=== PATIENT | male | born 1965 | race African-American/Black ===

== ENCOUNTER 2023-04-25 17:16 | Inpatient (IN) | payer OTHER ==
[2023-04-25 18:03] LABS: Hemoglobin 10.4 g/dL (13.5-17.5); Mean Corpuscular HGB CONC 33.7 g/dL (32.0-36.0); Mean Corpuscular Hemoglobin 29.9 pg (27.0-33.0); Mean Corpuscular Volume 88.8 fl (81.2-95.1); Mean Platelet Volume 11.4 fl (7.4-10.4); Platelet Count 301 10x3/uL (150-450); RBC Distribution Width 12.4 % (11.5-14.5); Red Blood Cell (RBC) Count 3.48 10x6/uL (4.32-5.72); White Blood Cell (WBC) Count 21.4 10x3/uL (3.5-10.5)
[2023-04-25 18:11] LABS: ALT (SGPT) 32 U/L (8-55); AST (SGOT) 29 U/L (5-34); Albumin 3.2 g/dL (3.5-5.0); Alkaline Phosphatase 96 U/L (40-110); Anion Gap 16 mmol/L (10-20); BUN (Urea Nitrogen) 9 mg/dL (8.4-25.7); Bilirubin, Total 1.3 mg/dL (0.2-1.2); Calc. Creatinine Clearance 0 mL/min (70-130); Calcium 8.6 mg/dL (7.8-10.44); Carbon Dioxide 26 mmol/L (22-29); Chloride 96 mmol/L (98-107); Estimated GFR 103; Glucose 96 mg/dL (70-105); Protein, Total 7.2 g/dL (6.0-8.3); Sodium 135 mmol/L (136-145)
[2023-04-25 18:17] LABS: Potassium 2.5 mmol/L (3.5-5.1)
[2023-04-25 18:29] LABS: MDiff Complete? YES
[2023-04-25] MEDS ORDERED: Ketorolac Tromethamine 30 MG/ML VIAL ONE (18:30)
[2023-04-25] MEDS ORDERED: Ondansetron PF 4 MG/2 ML Vial ONE (18:30)
[2023-04-25 18:31] LABS: Lymphocytes 8 % (21-51); Monocytes 11 % (0-10); Neutrophil 81 % (42-75)
[2023-04-25] MEDS ORDERED: cefTRIAXone (ROCEPHIN) 1 GM VIAL ONE (18:31)
[2023-04-25 18:32] LABS: Large Platelets SLIGHT (None Seen); Platelet Adequacy Comment Appears Adequate; RBC Morph Comment Within Normal Limits
[2023-04-25 19:48] LABS: Bilirubin 1+ (Negative); Blood, Urine 50 (Negative); Clarity Clear (Clear); Glucose, Urine (Dipstick) Normal (Negative); Ketone, Urine 50 mg/dL (Negative); Leukocyte 25 (Negative); Nitrite Negative (Negative); Protein, Urine (Dipstick) 100 mg/dl (Neg-Trace); Specific Gravity, Urine 1.005 (1.005-1.030); Urobilinogen 12 mg/dL (Less than 2); pH, Urine 6.5 (5.0-9.0)
[2023-04-25 20:01] LABS: Bacteria/HPF Rare-Few HPF (None Seen); CAUTI Indications for Culture Dysuria,urgency,freq; RBC/HPF 0-3 HPF (0-3); Squamous Epithelial 0-3 HPF (0-3); WBC/HPF 0-3 HPF (0-3)
[2023-04-25 20:02] LABS: Urine Culture Reflex No No
[2023-04-25 20:24] LABS: SARS-CoV-2 NAA Rapid Test Not Detected (NotDetected)
[2023-04-25] MEDS ORDERED: Ondansetron PF 4 MG/2 ML Vial IVP PRN (22:34)
[2023-04-25] MEDS ORDERED: Guaifenesin DM 100-10/5 ML UDCUP PO PRN (22:34)
[2023-04-25] MEDS ORDERED: Senokot S 8.6-50 MG TAB PO PRN (22:34)
[2023-04-25] MEDS ORDERED: Calcium Carbonate 500 MG ChewTAB PO PRN (22:34)
[2023-04-26 00:53] VITALS: BMI 39.6
[2023-04-26] MEDS ORDERED: cefTRIAXone\\ROCEPHIN 1 GM in Sodium Chloride 0.9% 100 ML IVPB SCH (01:00)
[2023-04-26] MEDS: Potassium Chloride 20 MEQ TAB PO SCH ×2 (01:28→05:39)
[2023-04-26] MEDS: Acetaminophen 325 MG TAB PO PRN ×2 (03:27→13:00)
[2023-04-26 04:27] LABS: Hemoglobin 10.5 g/dL (13.5-17.5); Mean Corpuscular HGB CONC 32.9 g/dL (32.0-36.0); Mean Corpuscular Hemoglobin 29.3 pg (27.0-33.0); Mean Corpuscular Volume 89.1 fl (81.2-95.1); Mean Platelet Volume 11.2 fl (7.4-10.4); Platelet Count 321 10x3/uL (150-450); RBC Distribution Width 12.4 % (11.5-14.5); Red Blood Cell (RBC) Count 3.58 10x6/uL (4.32-5.72); White Blood Cell (WBC) Count 22.8 10x3/uL (3.5-10.5)
[2023-04-26 04:29] LABS: MDiff Complete? YES
[2023-04-26 04:41] LABS: Anion Gap 15 mmol/L (10-20); BUN (Urea Nitrogen) 10 mg/dL (8.4-25.7); CK (CPK) 102 U/L (30-200); Calc. Creatinine Clearance 169 mL/min (70-130); Calcium 8.5 mg/dL (7.8-10.44); Carbon Dioxide 27 mmol/L (22-29); Chloride 99 mmol/L (98-107); Estimated GFR 103; Glucose 112 mg/dL (70-105); Magnesium 1.9 mg/dL (1.6-2.6); Potassium 2.8 mmol/L (3.5-5.1); Sodium 138 mmol/L (136-145)
[2023-04-26 04:42] LABS: ALT (SGPT) 35 U/L (8-55); AST (SGOT) 32 U/L (5-34); Albumin 3.1 g/dL (3.5-5.0); Alkaline Phosphatase 103 U/L (40-110); Bilirubin, Direct 0.8 mg/dL (0.1-0.3); Bilirubin, Total 1.1 mg/dL (0.2-1.2); Protein, Total 7.1 g/dL (6.0-8.3)
[2023-04-26 05:14] LABS: Band 11 % (5-11); Lymphocytes 3 % (21-51); Monocytes 5 % (0-10); Neutrophil 81 % (42-75)
[2023-04-26 05:15] LABS: Large Platelets SLIGHT (None Seen); Platelet Adequacy Comment Appears Adequate; RBC Morph Comment Within Normal Limits
[2023-04-26] MEDS ORDERED: Furosemide 20 MG TAB PO SCH (09:00)
[2023-04-26] MEDS: Amlodipine 5 MG TAB PO SCH (10:19)
[2023-04-26] MEDS ORDERED: Sodium Chloride 0.9% 1,000 ML IV SCH (10:45)
[2023-04-26] MEDS: Potassium Chloride 20 MEQ in Premix Bag 1 BAG IVPB SCH ×2 (13:00→19:19)
[2023-04-26 13:11] LABS: HBCM Index 0.07 S/CO (0-0.79); HBSAg Index 0.31 S/CO (0-0.99); Hep A IgM AB Non-Reactive S/CO (NonReactive); Hep A IgM S/CO 0.11 S/CO (0-0.79); Hep B Surf Ag Non-Reactive S/CO (NonReactive); Hepatitis B Core IgM Abs Non-Reactive S/CO (NonReactive)
[2023-04-26 13:15] LABS: Hep C IgG Ab Reflex HepC Qnt S/CO (NonReactive); Hep C Index 1.73 S/CO (0-0.79)
[2023-04-26] MEDS ORDERED: Piperacillin/Tazobactam 3.375 GM in Sodium Chloride 0.9% 100 ML IVPB SCH ×2 (17:00→18:00)
[2023-04-26] MEDS ORDERED: cefTRIAXone\\ROCEPHIN 2 GM in Sodium Chloride 0.9% 100 ML IVPB SCH (18:00)
[2023-04-26] MEDS: Piperacillin/Tazobactam 3.375 GM in Sodium Chloride 0.9% 100 ML IVPB SCH (20:59)
[2023-04-26] MEDS ORDERED: Simvastatin 10 MG TAB PO SCH (21:00)
[2023-04-27] MEDS: Piperacillin/Tazobactam 3.375 GM in Sodium Chloride 0.9% 100 ML IVPB SCH ×2 (05:14→14:02)
[2023-04-27 05:24] LABS: Hemoglobin 10.8 g/dL (13.5-17.5); MDiff Complete? YES; Mean Corpuscular HGB CONC 32.9 g/dL (32.0-36.0); Mean Corpuscular Hemoglobin 29.4 pg (27.0-33.0); Mean Corpuscular Volume 89.4 fl (81.2-95.1); Mean Platelet Volume 11.3 fl (7.4-10.4); Platelet Count 348 10x3/uL (150-450); RBC Distribution Width 12.5 % (11.5-14.5); Red Blood Cell (RBC) Count 3.67 10x6/uL (4.32-5.72); White Blood Cell (WBC) Count 27.7 10x3/uL (3.5-10.5)
[2023-04-27 05:36] LABS: Anion Gap 14 mmol/L (10-20); BUN (Urea Nitrogen) 7 mg/dL (8.4-25.7); Calc. Creatinine Clearance 180 mL/min (70-130); Calcium 8.7 mg/dL (7.8-10.44); Carbon Dioxide 26 mmol/L (22-29); Chloride 99 mmol/L (98-107); Estimated GFR 105; Glucose 107 mg/dL (70-105); Magnesium 1.8 mg/dL (1.6-2.6); Potassium 3.2 mmol/L (3.5-5.1); Sodium 136 mmol/L (136-145)
[2023-04-27 06:03] LABS: Band 6 % (5-11); Lymphocytes 5 % (21-51); Monocytes 5 % (0-10); Neutrophil 83 % (42-75)
[2023-04-27 06:04] LABS: Platelet Adequacy Comment Appears Adequate; RBC Morph Comment Within Normal Limits
[2023-04-27] MEDS: Amlodipine 5 MG TAB PO SCH (08:39)
[2023-04-27] MEDS: Potassium Chloride 20 MEQ TAB PO SCH ×2 (08:39→14:01)
[2023-04-27] MEDS ORDERED: Meropenem 1 GM in Sodium Chloride 0.9% 100 ML IVPB SCH ×2 (17:30→18:00)
[2023-04-27] MEDS: Acetaminophen 325 MG TAB PO PRN (19:53)
[2023-04-27] MEDS: Enoxaparin 120 MG/0.8 ML SYRINGE SC SCH (20:04)
[2023-04-28] MEDS: Meropenem 1 GM in Sodium Chloride 0.9% 100 ML IVPB SCH ×3 (01:29→16:27)
[2023-04-28 04:12] LABS: Mean Corpuscular HGB CONC 32.4 g/dL (32.0-36.0); Mean Corpuscular Hemoglobin 29.4 pg (27.0-33.0); Mean Corpuscular Volume 90.6 fl (81.2-95.1); Platelet Count 362 10x3/uL (150-450); RBC Distribution Width 12.7 % (11.5-14.5); Red Blood Cell (RBC) Count 3.74 10x6/uL (4.32-5.72); White Blood Cell (WBC) Count 21.3 10x3/uL (3.5-10.5)
[2023-04-28 04:16] LABS: MDiff Complete? YES
[2023-04-28 04:22] LABS: Anion Gap 15 mmol/L (10-20); BUN (Urea Nitrogen) 8 mg/dL (8.4-25.7); Calc. Creatinine Clearance 195 mL/min (70-130); Calcium 8.7 mg/dL (7.8-10.44); Carbon Dioxide 27 mmol/L (22-29); Chloride 99 mmol/L (98-107); Estimated GFR 107; Glucose 98 mg/dL (70-105); Potassium 3.8 mmol/L (3.5-5.1); Sodium 137 mmol/L (136-145)
[2023-04-28 05:15] LABS: Band 13 % (5-11); Lymphocytes 6 % (21-51); Monocytes 5 % (0-10); Neutrophil 76 % (42-75)
[2023-04-28 05:16] LABS: Platelet Adequacy Comment Appears Adequate; RBC Morph Comment Within Normal Limits
[2023-04-28] MEDS: Enoxaparin 120 MG/0.8 ML SYRINGE SC SCH ×2 (08:49→20:05)
[2023-04-28] MEDS: Atorvastatin Calcium 10 MG TAB PO SCH (08:50)
[2023-04-28] MEDS: HYDROcodone/Acetaminophen 5/325 mg Tablet PO PRN (08:50)
[2023-04-28] MEDS: Amlodipine 10 MG TAB PO SCH (08:50)
[2023-04-28] MEDS ORDERED: VANCOMYCIN 2 GRAM/400 ML BAG 2 GM in Premix Bag 1 BAG IVPB SCH (14:00)
[2023-04-28 17:37] LABS: Hep C PCR-Quant HCV Not Detected IU/mL (.)
[2023-04-28] MEDS: Acetaminophen 325 MG TAB PO PRN (20:02)
[2023-04-28] MEDS ORDERED: Vancomycin HCl 1.25 GM in Sodium Chloride 0.9% 250 ML 250 ML IVPB SCH (21:00)
[2023-04-29] MEDS: Meropenem 1 GM in Sodium Chloride 0.9% 100 ML IVPB SCH ×3 (01:43→16:28)
[2023-04-29] MEDS: VANCOMYCIN 1.75 GM/350 ML BAG 1.75 GM in Premix Bag 1 BAG IVPB SCH ×2 (01:44→13:55)
[2023-04-29 05:16] LABS: MDiff Complete? YES; Mean Corpuscular HGB CONC 32.8 g/dL (32.0-36.0); Mean Corpuscular Hemoglobin 29.8 pg (27.0-33.0); Mean Corpuscular Volume 90.8 fl (81.2-95.1); Mean Platelet Volume 11.1 fl (7.4-10.4); Platelet Count 375 10x3/uL (150-450); RBC Distribution Width 12.8 % (11.5-14.5); Red Blood Cell (RBC) Count 3.69 10x6/uL (4.32-5.72); White Blood Cell (WBC) Count 21.3 10x3/uL (3.5-10.5)
[2023-04-29 05:28] LABS: Anion Gap 13 mmol/L (10-20); BUN (Urea Nitrogen) 8 mg/dL (8.4-25.7); Calc. Creatinine Clearance 197 mL/min (70-130); Calcium 8.6 mg/dL (7.8-10.44); Carbon Dioxide 27 mmol/L (22-29); Chloride 99 mmol/L (98-107); Estimated GFR 107; Glucose 96 mg/dL (70-105); Potassium 3.5 mmol/L (3.5-5.1); Sodium 135 mmol/L (136-145)
[2023-04-29 05:45] LABS: Lymphocytes 3 % (21-51); Monocytes 7 % (0-10); Neutrophil 90 % (42-75); Platelet Adequacy Comment Appears Adequate
[2023-04-29] MEDS: HYDROcodone/Acetaminophen 5/325 mg Tablet PO PRN ×2 (07:45→13:55)
[2023-04-29] MEDS: Sodium Chloride 0.9% 1,000 ML IV SCH ×2 (07:45→19:00)
[2023-04-29] MEDS: Enoxaparin 120 MG/0.8 ML SYRINGE SC SCH (09:13)
[2023-04-29] MEDS: Amlodipine 10 MG TAB PO SCH (09:13)
[2023-04-29] MEDS: Atorvastatin Calcium 10 MG TAB PO SCH (09:13)
[2023-04-29] MEDS: Acetaminophen 325 MG TAB PO PRN (19:45)
[2023-04-29] MEDS: Apixaban 5 MG TAB PO SCH (21:05)
[2023-04-30 01:43] LABS: Vancomycin, Trough 9.3 ug/mL
[2023-04-30] MEDS: Meropenem 1 GM in Sodium Chloride 0.9% 100 ML IVPB SCH ×3 (02:32→16:44)
[2023-04-30] MEDS: VANCOMYCIN 1.75 GM/350 ML BAG 1.75 GM in Premix Bag 1 BAG IVPB SCH (02:33)
[2023-04-30] MEDS ORDERED: VANCOMYCIN 2 GRAM/400 ML BAG 2 GM in Premix Bag 1 BAG IVPB SCH ×2 (03:00→15:00)
[2023-04-30] MEDS: Acetaminophen 325 MG TAB PO PRN ×2 (03:51→16:45)
[2023-04-30 05:05] LABS: #Basophils 0.1 10x3/uL (0.0-0.2); #Monocytes 1.1 10x3/uL (0.0-1.1); #Neutrophils 19.1 10x3/uL (1.5-8.4); %Basophils 0.2 % (0.0-2.0); %Eosinophils 0.2 % (0.0-6.0); %Lymphocytes 5.3 % (18.0-47.0); %Monocytes 4.8 % (0.0-10.0); %Neutrophils 87.4 % (40.0-75.0); Hemoglobin 10.6 g/dL (13.5-17.5); Mean Corpuscular HGB CONC 32.4 g/dL (32.0-36.0); Mean Corpuscular Volume 89.6 fl (81.2-95.1); Mean Platelet Volume 10.8 fl (7.4-10.4); Platelet Count 361 10x3/uL (150-450); RBC Distribution Width 12.9 % (11.5-14.5); Red Blood Cell (RBC) Count 3.65 10x6/uL (4.32-5.72); White Blood Cell (WBC) Count 21.9 10x3/uL (3.5-10.5)
[2023-04-30 05:11] LABS: Anion Gap 13 mmol/L (10-20); BUN (Urea Nitrogen) 9 mg/dL (8.4-25.7); Calc. Creatinine Clearance 206 mL/min (70-130); Calcium 8.3 mg/dL (7.8-10.44); Carbon Dioxide 25 mmol/L (22-29); Chloride 101 mmol/L (98-107); Estimated GFR 109; Glucose 107 mg/dL (70-105); Potassium 3.4 mmol/L (3.5-5.1); Sodium 136 mmol/L (136-145)
[2023-04-30] MEDS: Atorvastatin Calcium 10 MG TAB PO SCH (09:54)
[2023-04-30] MEDS: Amlodipine 10 MG TAB PO SCH (09:54)
[2023-04-30] MEDS ORDERED: Lidocaine 1% PF 5 ML VIAL ONE (10:28)
[2023-04-30] MEDS ORDERED: Sodium Bicarbonate 2.5 MEQ/5 ML VIAL ONE (10:28)
[2023-04-30] MEDS: Apixaban 5 MG TAB PO SCH ×2 (12:04→19:58)
[2023-04-30] MEDS: Sodium Chloride 0.9% 1,000 ML IV SCH (16:48)
[2023-05-01] MEDS: Meropenem 1 GM in Sodium Chloride 0.9% 100 ML IVPB SCH ×3 (02:15→18:49)
[2023-05-01] MEDS ORDERED: Sodium Chloride 0.9% 100 ML ONE (11:18)
[2023-05-01] MEDS: Atorvastatin Calcium 10 MG TAB PO SCH (11:35)
[2023-05-01] MEDS: Amlodipine 10 MG TAB PO SCH (11:36)
[2023-05-01] MEDS: Apixaban 5 MG TAB PO SCH ×2 (11:36→22:54)
[2023-05-01] MEDS: Sodium Chloride 0.9% 1,000 ML IV SCH ×2 (11:50→22:59)
[2023-05-02] MEDS: Meropenem 1 GM in Sodium Chloride 0.9% 100 ML IVPB SCH (04:39)
[2023-05-02 06:22] VITALS: TEMP 98.2
[2023-05-02] MEDS: Apixaban 5 MG TAB PO SCH (08:16)
[2023-05-02] MEDS: Atorvastatin Calcium 10 MG TAB PO SCH (08:16)
[2023-05-02] MEDS: Amlodipine 10 MG TAB PO SCH (08:16)
[2023-05-02 08:45] VITALS: BP 139/89
[2023-05-04] MEDS ORDERED: Apixaban 5 MG TAB PO SCH (21:00)
== END 2023-05-02 12:02 | DRG 862 ==
LOC: CSHERS 17:16 → CSHTELE 04-26 00:39 → OBSVTOIN 04-26 00:39 → INTOOBSV 04-26 00:39 → EEVIPCON 04-26 00:39
PROVIDERS: ADMIT Student in an Organized Health Care Education/Training Program; ATTEND Internal Medicine
PROC: 3E03329 Introduction of Other Anti-infective into Peripheral Vein, Percutaneous Approach (ICD-10-PCS; 2023-04-26)
PROC: 02HV33Z Insertion of Infusion Device into Superior Vena Cava, Percutaneous Approach (ICD-10-PCS; principal; 2023-04-30)
PROC: B5181ZA Fluoroscopy of Superior Vena Cava using Low Osmolar Contrast, Guidance (ICD-10-PCS; 2023-04-30)
PROC: B548ZZA Ultrasonography of Superior Vena Cava, Guidance (ICD-10-PCS; 2023-04-30)
DX: T81.41XA Infection following a procedure, superficial incisional surgical site, initial encounter (principal); A41.9 Sepsis, unspecified organism; N10 Acute pyelonephritis; I82.402 Acute embolism and thrombosis of unspecified deep veins of left lower extremity; N99.842 Postprocedural seroma of a genitourinary system organ or structure following a genitourinary system procedure; N30.90 Cystitis, unspecified without hematuria; E87.6 Hypokalemia; N28.89 Other specified disorders of kidney and ureter; Z20.822 Contact with and (suspected) exposure to COVID-19; E78.5 Hyperlipidemia, unspecified; I50.9 Heart failure, unspecified; I11.0 Hypertensive heart disease with heart failure; Z90.79 Acquired absence of other genital organ(s); Z80.42 Family history of malignant neoplasm of prostate; Z79.899 Other long term (current) drug therapy; Z88.8 Allergy status to other drugs, medicaments and biological substances; Y83.8 Other surgical procedures as the cause of abnormal reaction of the patient, or of later complication, without mention of misadventure at the time of the procedure
CPT/HCPCS: 36415; 36569; 74177; 80048; 80053; 80074; 80076; 80202; 81001; 82550; 83010; 83605; 83615; 83735; 85025; 85046; 87040; 87086; 87522; 93005; 93306; 93970; 96365; 96375; C1751; J0696; J1650; J1885; J2185; J2405; J2543; J3370; J3480; J3490; J7050